=== PATIENT | male | born 1965 | race Two or more races ===

== ENCOUNTER 2023-07-21 14:23 | Emergency (ER) | payer OTHER, SELFPAY ==
[2023-07-21 14:31] VITALS: BP 145/93
[2023-07-21] MEDS: DELTASONE 50 MG PO (16:20)
[2023-07-21] MEDS: DILAUDID 1 MG IM (16:20)
[2023-07-21] MEDS: TYLENOL 1000 MG PO (16:30)
--- NOTE | 2023-07-21 16:58 | ED.GENMED ---
History of Present Illness
General
Chief Complaint: Musculo-Skeletal Complaint
Source: patient
Exam Limitations: none
Time Seen by Provider: 07/21/23 15:17
Nursing documentation reviewed up to this point in time: agreed with
Travel History
Have you had any contact with someone who has COVID-19?: No
Do you have any symptoms of coronavirus? Fever > 100 degrees, chills, cough, shortness of breath, sore throat, loss of taste or smell, muscle aches, or headache?: No
History of Present Illness
History of Present Illness:
58 y/o m with h/o HTN, HLD, TN, stents
here with right hip pain
started suddently when he got into his work truck today, felt pop but was still able to drive to work and work for 2 hours before stopping. the pain is in his right posterior hip and goes down his leg sometimes to the foot
he has no weakness, numbness, tingling, incontinence, fever
pt has had something somewhat similar but more in his back last year and says he was hospitalized her voernight but never had MRI
(no record of this)
he is not on thinners
no ivda.
didn't take anything pilot captain
standing because sitting is very painful
he denies chest pain, shorntess of breath, abodminal pain, urinary symptoms
Past History
Past History
ED Past Medical History: CAD, HTN, Hypercholesterolemia and TN
ED Past Surgical History: Cardiac (PTCA with stent, 5 years ago)
Social History
Tobacco: Former smoker
Alcohol: None
Personal:
Living: with family
Employment: Employed
Family History
Family History: CAD
Review of Systems
Review of Systems
Allergies reviewed?: Yes
All Other Systems: Not applicable
Phy Exam
Physical Exam
Physical Exam:
GENERAL: Alert uncomfortable, standing, moving slowly to walk, very uncofmorotable changing positions
HEAD: NCAT
NECK: no midline tenderness, active ROM intact, no paraspinal muscle tenderness;
CARDIAC: Regular rate and rhythm, no edema
LUNGS: Clear breath sounds bilaterally, no acute respiratory distress, no wheezes/rales/rhonchi
ABDOMEN: Soft, without focal tenderness, no r/g, no cvat, normal bowel sounds, nondistended normal fem pulses
NEUROLOGICAL: Alert and oriented, no focal neuro deficits, CN intact, 5/5 strength, sensation intact, ambulates slowly; changin gposition painful
SKIN: Warm and dry, no redness/rashes/ecchymosis to posterior spine, hip, anterior groin
MUSCULOSKELETAL: No edema, well perfused. Normal inspection of the right hip, right leg
tender to right SI joint region and PSIS;
pain with hip flexion
neg straight leg raise, pain doesn't radiate but it hurts with hip flexion
also with rotation of hip
negative straight leg raise Bilaterally
PSYCH: Normal and appropriate interaction.
Course
Orders/Labs/Results
Orders:
Orders
07/21/23 14:34
Hip, Right 2-3 Views [CR Hip - RT w/wo Pel 2-3 Vw*] Urgent
Comment:
Reason For Exam: injury
Include a pelvis x-ray?: Yes
07/21/23 16:07
HYDROmorphone [Dilaudid] 1 mg IM NOW STA
Ketorolac [Toradol] 30 mg IM NOW STA
Prednisone [Deltasone] 50 mg PO NOW STA
07/21/23 16:13
Acetaminophen [Tylenol] 1,000 mg PO NOW STA
07/21/23 17:38
Ondansetron Orally Disint [Zofran Odt (Orally Disintegrating)] 4 mg PO NOW STA
Vital Signs
Initial and Last Documented VS:
Initial Vital Signs
Temp Pulse Resp BP Pulse Ox
98 F 80 16 145/93 98
07/21/23 14:31 07/21/23 14:31 07/21/23 14:31 07/21/23 14:31 07/21/23 14:31
Last Documented Vital Signs
Temp Pulse Resp BP Pulse Ox
98 F 77 16 141/85 98
07/21/23 14:31 07/21/23 17:46 07/21/23 14:31 07/21/23 17:46 07/21/23 14:31
MDM/Problems Addressed
Differential Diagnosis Includes:
hip pain, dislocatio, sicatica, bursiits, labrum tear
MDM/Problems Addressed:
58 y/o M with previous bakc issues not chroinc
here for right posterior hip pain this am when he was getting into his truck, felt pop
was still able to sit and drive and work for 2 hours before pain got worse and worse
radiates down his leg
no numbness/tingling/weakness, fever, chills, incontience, cp ,sob
has not had pain in this distribution in the past
nothing taken
Patient is moving slowly, gingerly going from standing to sitting, patient seems to be most uncomfortable in the seated position, once I get him flat where he is standing he is much more comfortable. I do not appreciate a positive straight leg
raise as he does have pain in his right back but it does not go down through his leg. He does however have pain with hip flexion and some hip rotation. He has no weakness numbness or tingling. There is no signs of cauda equina.
Patient was medicated with an IM shot of Dilaudid and given a dose of steroids. He after reassessment felt much better, he was seated on the side of the bed but looked a little bit pale. His blood pressure was normal. He was feeling nauseated,
likely due to the Dilaudid however the patient had said that he had had this medication before or had morphine when he was admitted and tolerated it better. He had had an empty stomach this time. He was given a little bit of food and a Zofran ODT
which did help. His blood pressure remained stable, he had no worsening symptoms of belly pain, chest pain or shortness of breath, weakness etc. I do not suspect that this is a vascular problem. It seems to be very positional and a sciatica like
syndrome. Will treat with steroids, patient is on aspirin and Plavix was told to take Pepcid if needed, avoid ibuprofen, counseled on risk of bleeding. Also given a short course of pain medication. Return precautions given
*Critical Care Note
Total Time (30-74mins, 75-104mins- exclusive of procedures): Not Applicable
ED Attending Note
-
Portions of this chart may have been created with voice recognition software.� Occasional wrong word or��sound alike� substitutions may have occurred due to the inherent limitations of voice recognition software.
Discharge Plan
Departure
Patient Disposition: Home (Routine Discharge)
Date of Disposition: 07/21/23
Time of Disposition: 17:12
Patient with high blood pressure during this ER visit?: Yes
Condition: Fair
Covid-19: Not Applicable
Discharge Problem:
Sciatica
Instructions: Sciatica (DC)
Prescriptions:
New
oxycodone-acetaminophen [Endocet] 5-325 mg tablet
1 tab PO Q8H PRN (Reason: Pain) Qty: 10 0RF
prednisone 50 mg tablet
50 mg PO DAILY Qty: 5 0RF
No Action
atorvastatin 80 MG tablet
80 mg PO QPM Qty: 30 1RF
clopidogrel 75 MG tablet
75 mg PO DAILY Qty: 30 1RF
lisinopril 10 MG tablet
10 mg PO DAILY Qty: 30 1RF
nitroglycerin 0.4 MG tablet, sublingual
0.4 mg sublingual [id number] PRN (Reason: chest pain) Qty: 20 0RF
aspirin 81 MG tablet,chewable
81 mg PO DAILY Qty: 30 1RF
metoprolol succinate 12.5 MG tablet extended release 24 hr
12.5 mg PO DAILY Qty: 20 1RF
sucralfate 1 GM/10 ML suspension
1 gm PO QID Qty: 120 0RF
Rx Instructions:
1 hour before meals and bedtime
Referrals:
Raymond Jules MD [Family Provider] - Follow up in 2-3 days
Activity Restrictions/Additional Instructions:
YOUR HIP XRAY SHOWS SOME ARTHRITIS BUT OTHERWISE WAS NORMAL
THIS COULD BE FROM SCIATICA
TRY PREDNISONE ONCE A DAY FOR 5 DAYS STARTING TOMORROW
WITH YOUR ASPIRIN AND PLAVIX, THIS COULD CAUSE STOMACH IRRITATION - SO IF YOU START GETTING ACID REFLUX YOU SHOULD TAKE PEPCID DAILY.
AVOID MOTRIN WHILE ON STEROIDS
FOR PAIN YOU CAN TRY PERCOCET EVERY 6 HOURS NEEDED
THIS IS STRONG, NO DRIVING OR WORKIN WHILE ON THIS
FOLLOW UP WITH ORTHOPEDICS OR YOUR FAMILY DOCTOR
RETURN FOR: LEG WEAKNESS, NUMBNESS THAT IS WORSE, INABILITY TO WALK, INCONTINENCE, FEVER, CHILLS, OR ANY CONCERNS.
Interventions
Interventions:
*Risk Screen - Suicide Last Done: 07/21/23 17:46
*General Assessment Last Done: 07/21/23 17:46
*Neglect/Abuse Screening Last Done: 07/21/23 17:46
*Nursing Disposition Last Done: 07/21/23 17:46
ED-Musculoskeletal Assessment Last Done: 07/21/23 16:32
Discharge Date and Time
Discharge Date/Time: 07/21/23 17:55
[2023-07-21 17:28] VITALS: BP 141/85
[2023-07-21] MEDS: ZOFRAN ODT (ORALLY DISINTEGRATING) 4 MG PO (17:42)
[2023-07-21 17:46] VITALS: BP 141/85
== END 2023-07-21 17:55 | disposition home or self-care (01) ==
LOC: EMR 14:23
PROVIDERS: EMERGENCY PHYSICIAN Emergency Medicine; FAMILY PHYSICIAN Internal Medicine
DX: M54.31 Sciatica, right side (principal); M25.551 Pain in right hip
CPT/HCPCS: 99284; 96372; 73502